=== PATIENT | male | born 1980 | race Caucasian/White ===

== ENCOUNTER 2017-11-15 15:17 | Emergency (ER) | payer MEDICARE, OTHER ==
[2017-11-15 15:26] VITALS: TEMP 98.9
--- NOTE | 2017-11-15 16:41 | XR ---
EXAMINATION TYPE: XR chest 2V DATE OF EXAM: 11/15/2017 COMPARISON: NONE HISTORY: Cough and congestion TECHNIQUE: Frontal and lateral views of the chest are obtained. FINDINGS: There is no pleural effusion or pneumothorax seen. Question some posterior basilar airspac e disease. The cardiac silhouette size is borderline enlarged. The osseous structures are intact. IMPRESSION: Correlate for lower lobe pneumonia versus atelectasis. Follow-up is suggested. Borderline enlarged cardiac silhouette.
[2017-11-15] MEDS ORDERED: cefTRIAXone 250 MG VIAL IM STA (17:00)
[2017-11-15] MEDS ORDERED: methylPREDNISolone SOD SUCCI 125 MG/2 ML VIAL IM ONE (17:00)
--- NOTE | 2017-11-15 17:03 | ED ---
URI HPI - General Chief Complaint: Upper Respiratory Infection Stated Complaint: Cough Time Seen by Provider: 11/15/17 15:31 Source: patient, RN notes reviewed, old records reviewed Mode of arrival: ambulatory Limitations: no limitations - History of Present Illness Initial Comments: 36-year-old male presents emergency department today chief complaint of cough congestion for the past 2 days. Patient reports that his cough is productive. No fevers or chills. Reports the cough. No vomiting earlier today. Denies any history of smoking or asthma.Patient denies any recent fever, chills, shortness of breath, chest pain, back pain, abdominal pain, nausea vomiting, numbness or tingling, dysuria or hematuria, constipation or diarrhea, headaches or visual changes, or any other current symptoms - Related Data Previous Rx's Medication Instructions Recorded Albuterol Inhaler [Ventolin Hfa 1 - 2 puff INHALATION RT-Q6H PRN 11/15/17 Inhaler] #1 inhaler Azithromycin [Zithromax Z-pack] 250 mg PO DIRECTED #6 tab 11/15/17 Promethazine/Dextromethorphan 5 ml PO TID #120 ml 11/15/17 [Phenergan DM Syrup] predniSONE 50 mg PO DAILY #5 tablet 11/15/17 Allergies Allergy/AdvReac Type Severity Reaction Status Date / Time morphine Allergy Rash/Hives Verified 11/15/17 15:26 Review of Systems ROS Statement: Those systems with pertinent positive or pertinent negative responses have been documented in the HPI. ROS Other: All systems not noted in ROS Statement are negative. Past Medical History Additional Past Medical History / Comment(s): cp History of Any Multi-Drug Resistant Organisms: None Reported Past Surgical History: No Surgical Hx Reported Past Psychological History: No Psychological Hx Reported Smoking Status: Never smoker Past Alcohol Use History: Occasional Past Drug Use History: None Reported General Exam - General Exam Comments Initial Comments: 36-year-old male. Alert and oriented. No acute distress. General: Well appearing, well nourished, in no distress. Oriented x 3, normal mood and affect . Ambulating without difficulty. Skin: Good turgor, no rash, unusual bruising or prominent lesions Hair: Normal texture and distribution. HEENT: Head: Normocephalic, atraumatic, no visible or palpable masses, depressions, or scaring. Eyes: Visual acuity intact, conjunctiva clear, sclera non-icteric, EOM intact, PERRL. Ears: EACs clear, TMs translucent & cone of light visualized. hearing intact. Pharynx: Mucosa non-inflamed, no tonsillar hypertrophy or exudate evidence of postnasal drip. Neck: Supple, without lesions, bruits, or adenopathy, thyroid non-enlarged and non-tender Heart: Heart has no abnormal rhythms. No murmurs. Lungs: Lungs are clear and station. No active wheezing. Abdomen: Bowel sounds normal, no tenderness, organomegaly, masses, or hernia Extremities: No amputations or deformities, cyanosis, edema or varicosities, peripheral pulses intact Musculoskeletal: Normal gait and station. No misalignment, asymmetry, crepitation, defects, tenderness, masses, effusions, decreased range of motion, instability, atrophy or abnormal strength or tone in the head, neck, spine, ribs , pelvis or extremities. Neurologic: CN 2-12 normal. Sensation to pain, touch, and proprioception normal. DTRs normal in upper and lower extremities. No pathologic reflexes. Psychiatric: Oriented X3, intact recent and remote memory, judgment and insight , normal mood and affect. Limitations: no limitations Course Vital Signs 11/15/17 15:24 Temperature 98.9 F Pulse Rate 119 H Respiratory 18 Rate Blood Pressure 112/77 O2 Sat by Pulse 98 Oximetry Medical Decision Making - Medical Decision Making This Patient is a 36-year-old male persist september of 1 day of cough. Reports been productive. He did cough. No vomiting earlier today. Clear to auscultation. No significant wheezing. Doesn't appear to be in any distress on exam. Patient 's chest x-ray shows evidence of the left lower lobe pneumonia versus atelectasis. Recommended follow-up. Borderline heart size. Denies any chest pain. Above is positional. Patient has no other symptoms including his legs or any chest pain. No vomiting or abdominal pain. At this time I'll treat the Patient for CAP pneumonia given IM Rocephin and steroids. We'll discharge with azithromycin and steroids and albuterol inhaler cough syrup. Discussed appropriate follow-up with PCP. All questions answered return parameters were discussed. Disposition Clinical Impression: Left lower lobe pneumonia, CAP (community acquired pneumonia) Disposition: HOME SELF-CARE Condition: Good Additional Instructions: Patient advised to follow-up with primary care provider. Take the medications as prescribed. Return to the emergency department if any alarming signs or symptoms occur. Prescriptions: Albuterol Inhaler [Ventolin Hfa Inhaler] 1 - 2 puff INHALATION RT-Q6H PRN #1 inhaler PRN Reason: Shortness Of Breath Azithromycin [Zithromax Z-pack] 250 mg PO DIRECTED #6 tab predniSONE 50 mg PO DAILY #5 tablet Promethazine/Dextromethorphan [Phenergan DM Syrup] 5 ml PO TID #120 ml Is patient prescribed a controlled substance at d/c from ED?: No When asked, does pt state using other controlled substances?: No If prescribed controlled substance>3 days was MAPS reviewed?: No If opioid is for acute pain is fill amount 7 days or less?: No If Rx opioid, was Start Talking consent form obtained?: No Referrals: Hector Mesa MD [Primary Care Provider] - 1-2 days Time of Disposition: 17:01
[2017-11-15 17:31] VITALS: BP 130/89; PULSE 88; RESP 16
== END 2017-11-15 17:33 | disposition home or self-care (01) ==
LOC: EC 15:17
DX: J18.9 Pneumonia, unspecified organism (principal); Z88.5 Allergy status to narcotic agent
CPT/HCPCS: 71046; 99284; 96372 ×2; J2930; J0696

== ENCOUNTER 2021-11-25 06:21 | Emergency (ER) | payer MEDICARE, OTHER ==
[2021-11-25 06:27] VITALS: BP 154/99; PULSE 89; RESP 18; TEMP 98
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
--- NOTE | 2021-11-25 07:02 | XR ---
EXAMINATION TYPE: XR elbow complete LT DATE OF EXAM: 11/25/2021 CLINICAL HISTORY: Fall injury with pain TECHNIQUE: Frontal, lateral and oblique images of the left elbow are obtained. COMPARISON: None FINDINGS: Suboptimal due to less than ideal positioning. There is no acute fracture/dislocation massiel rly evident in the left elbow. No abnormal fat pad signs are seen. The overlying soft tissue appear s unremarkable. IMPRESSION: There is no acute fracture or dislocation in the left elbow.
== END 2021-11-25 07:18 | disposition home or self-care (01) ==
LOC: EC 06:21
DX: M25.522 Pain in left elbow (principal); V28.9XXA Unspecified motorcycle rider injured in noncollision transport accident in traffic accident, initial encounter; Y92.410 Unspecified street and highway as the place of occurrence of the external cause
CPT/HCPCS: 99283

== ENCOUNTER 2024-05-24 15:15 | Emergency (ER) | payer MEDICARE, OTHER ==
--- NOTE | 2024-05-24 16:16 | ED ---
General Adult HPI - General Source: patient, RN notes reviewed Mode of arrival: ambulatory Limitations: no limitations <Angeles Oconnor - Last Filed: 05/24/24 16:15> <Arron Suárez - Last Filed: 05/26/24 07:43> - General Chief complaint: Upper Respiratory Infection Stated complaint: SOB Time Seen by Provider: 05/24/24 16:15 - History of Present Illness Initial comments: Quick note: 43-year-old male history of cerebral palsy presents to the emergency department for cough x 3 days. (Angeles Oconnor) 43-year-old male presents for evaluation of cough. Cough is mostly dry. No fever. No chest pain. No nausea vomiting. Patient states his appetite is good. No history of asthma or COPD. No lower extremity pain or swelling. (Arron Suárez) - Related Data Previous Rx's Medication Instructions Recorded Albuterol Inhaler [Ventolin Hfa 1 - 2 puff INHALATION RT-Q6H PRN 11/15/17 Inhaler] #1 inhaler Azithromycin [Zithromax Z-pack (6 250 mg PO DIRECTED #6 tab 11/15/17 tabs)] Promethazine/Dextromethorphan 5 ml PO TID #120 ml 11/15/17 [Phenergan DM Syrup] predniSONE 50 mg PO DAILY #5 tablet 11/15/17 Allergies Allergy/AdvReac Type Severity Reaction Status Date / Time morphine Allergy Rash/Hives Verified 05/24/24 16:09 Review of Systems ROS Other: All systems not noted in ROS Statement are negative. <Angeles Oconnor - Last Filed: 05/24/24 16:15> ROS Other: All systems not noted in ROS Statement are negative. <Arron Suárez - Last Filed: 05/26/24 07:43> ROS Statement: Those systems with pertinent positive or pertinent negative responses have been documented in the HPI. Past Medical History Additional Past Medical History / Comment(s): cerebral palsy History of Any Multi-Drug Resistant Organisms: None Reported Past Surgical History: No Surgical Hx Reported Past Psychological History: No Psychological Hx Reported Smoking Status: Never smoker Past Alcohol Use History: Occasional Past Drug Use History: None Reported <Angeles Oconnor - Last Filed: 05/24/24 16:15> General Exam Limitations: no limitations <Angeles Oconnor - Last Filed: 05/24/24 16:15> General appearance: alert, in no apparent distress Head exam: Present: atraumatic, normocephalic Eye exam: Present: normal appearance, PERRL Neck exam: Present: normal inspection Respiratory exam: Present: normal lung sounds bilaterally. Absent: respiratory distress, wheezes Cardiovascular Exam: Present: regular rate, normal rhythm GI/Abdominal exam: Present: soft. Absent: distended, tenderness Neurological exam: Present: alert, oriented X3 Psychiatric exam: Present: normal affect, normal mood Skin exam: Present: warm, dry, intact <Arron Suárez N - Last Filed: 05/26/24 07:43> - General Exam Comments Initial Comments: Visual Physical Exam Vital signs reviewed General: Well-appearing, nontoxic, no acute distress. Head: Normocephalic, atraumatic Eyes: PERRLA, EOMI ENT: Airway patent Chest: Nonlabored breathing Skin: No visual rash, normal skin tone Neuro: Alert and oriented 3 Musculoskeletal: No gross abnormalities (Angeles Oconnor) Course Vital Signs 05/24/24 05/24/24 16:06 18:02 Temperature 98.3 F 98.1 F Pulse Rate 85 75 Respiratory 22 18 Rate Blood Pressure 127/85 123/82 O2 Sat by Pulse 98 97 Oximetry Medical Decision Making <Angeles Oconnor - Last Filed: 05/24/24 16:15> <Arron Suárez N - Last Filed: 05/26/24 07:43> - Medical Decision Making Quick note preformed and electronically signed by Angeles Oconnor PA-C (Angeles Oconnor) Was pt. sent in by a medical professional or institution ([facility], ACADEMIC PHYSICIAN, urgent care, hospital, or residential...) When possible be specific @ -No Did you speak to anyone other than the patient for history (EMS, parent, family, police, friend...)? What history was obtained from this source @ -No Did you review nursing and triage notes (agree or disagree)? Why? @ -I reviewed and agree with nursing and triage notes Were old charts reviewed (outside hosp., previous admission, EMS record, old EKG, old radiological studies, urgent care reports/EKG's, residential records)? Report findings @ -No old charts were reviewed Differential Diagnosis: Pneumonia, upper respiratory infection, bronchitis EKG interpreted by me (3pts min.). @ -As above X-rays interpreted by me (1pt min.). @ -Chest x-ray negative for focal pneumonia CT interpreted by me (1pt min.). @ -None done U/S interpreted by me (1pt. min.). @ -None done What testing was considered but not performed or refused? (CT, X-rays, U/S, labs)? Why? @ -None What meds were considered but not given or refused? Why? @ -None Did you discuss the management of the patient with other professionals (professionals i.e. , PA, ACADEMIC PHYSICIAN, lab, RT, psych nurse, director of social services, financial cost analyst, teacher, ammunition officer, sample case porter)? Give summary @ -No Was smoking cessation discussed for >3mins.? @ -No Was critical care preformed (if so, how long)? @ -No Were there social determinants of health that impacted care today? How? (Homelessness, low income, unemployed, alcoholism, drug addiction, transportation, low edu. Level, literacy, decrease access to med. care, fpc, rehab)? @ -No Was there de-escalation of care discussed even if they declined (Discuss DNR or withdrawal of care, Hospice)? DNR status @ -No What co-morbidities impacted this encounter? (DM, HTN, Smoking, COPD, CAD, Can cer, CVA, ARF, Chemo, Hep., AIDS, mental health diagnosis, sleep apnea, morbid obesity)? @ -None Was patient admitted / discharged? Hospital course, mention meds given and route, prescriptions, significant lab abnormalities, going to OR and other pertinent info. @ 43-year-old male presenting with 3 days of dry cough. No fever. No chest pain. Patient states that DayQuil is helping during the day but he is allergic to NyQuil. Chest x-ray is clear. Viral panel is negative. Vital signs are stable. Patient will follow-up with primary care provider. Stable for discharge at this time. Return parameters discussed. Undiagnosed new problem with uncertain prognosis? @ -No Drug Therapy requiring intensive monitoring for toxicity (Heparin, Nitro, Insulin, Cardizem)? @ -No Were any procedures done? @ -No Diagnosis/symptom? @ -[upper respiratory infection Acute, or Chronic, or Acute on Chronic? @ acute Uncomplicated (without systemic symptoms) or Complicated (systemic symptoms)? @ -Default Side effects of treatment? @ -No Exacerbation, Progression, or Severe Exacerbation? @ -No Poses a threat to life or bodily function? How? (Chest pain, [place], [place], pneumonia, PE, COPD, DKA, ARF, appy, cholecystitis, CVA, Diverticulitis, Homicidal, Suicidal, threat to staff... and all critical care pts) @ -No (Arron Suárez) - Lab Data Lab Results 05/24/24 Range/Units 16:23 Influenza Type A (PCR) Not Detected (Not Detectd) Influenza Type B (PCR) Not Detected (Not Detectd) RSV (PCR) Not Detected (Not Detectd) SARS-CoV-2 (PCR) Not Detected (Not Detectd) Disposition <Angeles Oconnor - Last Filed: 05/24/24 16:15> Is patient prescribed a controlled substance at d/c from ED?: No <Arron Suárez - Last Filed: 05/26/24 07:43> Clinical Impression: Acute upper respiratory infection Disposition: HOME SELF-CARE Condition: Good Instructions (If sedation given, give patient instructions): Upper Respiratory Infection (ED) Referrals: [facility] [NON-STAFF] - 1-2 days [facility] [NON-STAFF] - 1-2 days None,Stated [Primary Care Provider] - 1-2 days Forms: Area PCPs
--- NOTE | 2024-05-24 16:51 | XR ---
EXAMINATION TYPE: XR chest 2V DATE OF EXAM: 05/24/2024 4:48 PM COMPARISON: Chest x-ray 2018 CLINICAL INDICATION: Male, 43 years old with history of cough, TECHNIQUE: Frontal and lateral views of the chest are obtained. FINDINGS: There is no focal air space opacity, pleural effusion, or pneumothorax seen. Cardiomegaly is present. The osseous structures are intact. IMPRESSION: Cardiomegaly without acute pulmonary process. [facility], , 05/24/2024 4:49 PM
[2024-05-24 18:03] VITALS: BP 123/82; PULSE 75; RESP 18; TEMP 98.1
== END 2024-05-24 18:03 | disposition home or self-care (01) ==
LOC: EC 15:15
DX: J06.9 Acute upper respiratory infection, unspecified (principal); Z88.1 Allergy status to other antibiotic agents
CPT/HCPCS: 71046; 87636; 99284